=== PATIENT | female | born 1945 | race African-American/Black ===

== ENCOUNTER 2019-05-29 19:36 | Emergency (ER) | payer MEDICARE, MEDICAID ==
[~2019-05-29] VITALS: Ht 167.6 cm; Wt 100.0 kg
[2019-05-29 20:25] LABS: BASOPHILS # (AUTO) 0.1 X10'3 (0-0.2); BASOPHILS % (AUTO) 1.3 % (0-1); EOSINOPHILS # (AUTO) 0.2 X10'3 (0-0.9); EOSINOPHILS % (AUTO) 4.8 % (0-6); HEMATOCRIT 41.5 % (35.0-45.0); HEMOGLOBIN 13.2 g/dl (12.0-16.0); LYMPHOCYTES # (AUTO) 1.1 X10'3 (1.1-4.8); LYMPHOCYTES % (AUTO) 27.1 % (21-51); MEAN CORPUSCULAR HEMOGLOBIN 25.9 PG (27.0-31.0); MEAN CORPUSCULAR HGB CONC 31.9 g/dL (33.0-36.5); MEAN CORPUSCULAR VOLUME 81.1 FL (78-98); MONOCYTES # (AUTO) 0.6 X10'3 (0-0.9); MONOCYTES % (AUTO) 15.6 % (2-12); NEUTROPHILS % (AUTO) 51.2 % (42-75); PLATELET COUNT 210 X10'3 (140-440); RED BLOOD COUNT 5.12 X10'6 (4.20-5.60); RED CELL DISTRIBUTION WIDTH 16.5 % (11.5-14.5)
[2019-05-29 20:39] LABS: ALANINE AMINOTRANSFERASE 13 U/L (12-78); ALBUMIN 3.6 G/DL (3.4-5.0); ALBUMIN/GLOBULIN RATIO 0.8 (1.1-1.5); ALKALINE PHOSPHATASE 105 IU/L (46-116); ANION GAP 7 (8-16); ASPARTATE AMINO TRANSFERASE 12 U/L (10-37); BILIRUBIN,TOTAL 0.2 MG/DL (0.1-1.0); BLOOD UREA NITROGEN 8 MG/DL (7-18); BUN/CREATININE RATIO 9.6 (6.6-38.0); CALCIUM 9.6 MG/DL (8.5-10.1); CHLORIDE 106 MMOL/L (99-107); CREATININE 0.83 MG/DL (0.40-0.90); GLUCOSE 103 MG/DL (70-104); POTASSIUM 3.7 MMOL/L (3.5-5.1); SODIUM 141 MMOL/L (135-145); TOTAL CARBON DIOXIDE 28.3 MMOL/L (24-32); TOTAL PROTEIN 8.4 G/DL (6.4-8.2); eGFR 67 ML/MIN
[2019-05-29 21:48] LABS: ANISOCYTOSIS 1+; PLATELET ESTIMATE NORMAL; TOTAL CELLS COUNTED 100
[2019-05-29 21:49] LABS: GIANT PLATELET FEW; LARGE PLATELETS FEW; SMUDGE CELLS 2+
[2019-05-29] MEDS ORDERED: albuterol 2.5 MG/3 ML nebule CONTNEB PRN (22:00)
[2019-05-29] MEDS ORDERED: ipratropium 0.5 MG/2.5ML nebule IH ONE (22:00)
[2019-05-29] MEDS ORDERED: normal saline 1000ML IV soln IVB ONE (22:00)
[2019-05-29] MEDS ORDERED: benzonatate 100mg capsule PO ONE (22:00)
[2019-05-29] MEDS ORDERED: methylPREDNISolone sod succ 125mg/2ml vial IV ONE (22:00)
[2019-05-29 22:21] LABS: TROPONIN I < 0.04 NG/ML (0.0-0.05)
[2019-05-29] MEDS ORDERED: INHA1INH2 (22:45)
[2019-05-29] MEDS ORDERED: BENZ-16 PO (22:45)
[2019-05-29] MEDS ORDERED: PRED20TA PO (22:45)
[2019-05-29] MEDS ORDERED: ALBU18HF2 INH (22:45)
[2019-05-30 00:08] VITALS: BP 159/62
== END 2019-05-30 00:11 | disposition home or self-care (01) ==
LOC: ER 19:37
DX: J44.1 Chronic obstructive pulmonary disease with (acute) exacerbation (principal); I25.10 Atherosclerotic heart disease of native coronary artery without angina pectoris; E78.00 Pure hypercholesterolemia, unspecified; I25.2 Old myocardial infarction; E11.9 Type 2 diabetes mellitus without complications; I50.9 Heart failure, unspecified; I11.0 Hypertensive heart disease with heart failure; F17.200 Nicotine dependence, unspecified, uncomplicated; Z88.0 Allergy status to penicillin; Z79.899 Other long term (current) drug therapy; Z95.1 Presence of aortocoronary bypass graft
CPT/HCPCS: 36415; 71046; 80053; 83605; 84484; 85025; 87040; 93005; 94644; 94760; 96374; 99285; J2930; J7040; 94640

== ENCOUNTER 2019-07-22 15:16 | Emergency (ER) | payer MEDICARE, MEDICAID ==
[~2019-07-22] VITALS: Ht 167.6 cm; Wt 90.0 kg
[~2019-07-22 15:16] MED LIST: ALBU18HF2 INH; INHA1INH2
[2019-07-22] MEDS ORDERED: ipratropium/albuterol 3ml nebule NEB ONE (16:20)
[2019-07-22] MEDS ORDERED: GUAI120015 PO (16:54)
[2019-07-22 17:08] VITALS: BP 168/84
== END 2019-07-22 17:09 | disposition home or self-care (01) ==
LOC: ER 15:17
DX: J45.909 Unspecified asthma, uncomplicated (principal); F17.200 Nicotine dependence, unspecified, uncomplicated; I25.10 Atherosclerotic heart disease of native coronary artery without angina pectoris; I50.9 Heart failure, unspecified; E78.00 Pure hypercholesterolemia, unspecified; I11.0 Hypertensive heart disease with heart failure; I25.2 Old myocardial infarction; J44.9 Chronic obstructive pulmonary disease, unspecified; E11.9 Type 2 diabetes mellitus without complications; Z95.1 Presence of aortocoronary bypass graft; Z88.0 Allergy status to penicillin; Z79.899 Other long term (current) drug therapy
CPT/HCPCS: 94640; 94760; 99283